=== PATIENT | male | born 1965 | race Two or more races ===

== ENCOUNTER 2024-11-26 10:58 | Emergency (ER) | payer OTHER ==
[~2024-11-26] VITALS: Ht 170.2 cm; Wt 63.6 kg
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
[2024-11-26 11:56] VITALS: PULSE 99; RESP 16; O2SAT 100
[2024-11-26 12:12] LABS: Hematocrit 38.1 % (41.0-53.0); Hemoglobin 12.2 g/dL (13.5-17.5); Mean Corpuscular Hemoglobin 24.4 pg (28.0-32.0); Mean Corpuscular Volume 76.5 fL (80.0-100.0); Nucleated Red Blood Cells % 0.1 %
[2024-11-26 12:31] LABS: Alanine Aminotransferase 36 U/L (7-40); Albumin 4.2 g/dL (3.2-4.8); Alkaline Phosphatase 94 U/L (46-116); Anion Gap 9 (5-15); BUN/Creatinine Ratio 9.8 (10.0-20.0); Bilirubin, Total 0.5 mg/dL (0.2-1.0); Calcium 9.1 mg/dL (8.7-10.4); Carbon Dioxide 25 mmol/L (20-31); Chloride 104 mmol/L (98-107); Creatine Kinase IFCC 143 U/L (46-171); Potassium 4.4 mmol/L (3.5-5.1); Sodium 138 mmol/L (136-145); Total Protein 7.2 g/dL (5.7-8.2)
[2024-11-26 12:33] LABS: Blood Urea Nitrogen 9 mg/dL (9-23); Glucose 109 mg/dL (74-106)
--- NOTE | 2024-11-26 12:48 | DVH ---
COMPUTERIZED TOMOGRAPHY OF THE HEAD WITHOUT CONTRAST REASON FOR STUDY: fall trauma COMPARISON: CT CERVICAL WITHOUT CONTRAST on DOS: 11/26/24, CT MAXILLOFACIAL WITHOUT on DOS: 11/26/24 TECHNIQUE: Helical tomographic scans were obtained through the brain. 2-D coronal and sagittal refor matted images are provided. Radiation optimization: All CT scans at this facility use at least one of these dose optimization techniques: Automated exposure control mA and/or kV adjustment per patient s ize (includes targeted exams where dose is matched to clinical indication) or iterative reconstructio n. RADIATION DOSE: CTDI: 56.92 mGy DLP: 1050.59 mGy-cm FINDINGS: No suspicious intracranial hyperdensity to suggest acute blood. There is no mass effect n or midline shift. There is no hydrocephalus. The suprasellar cistern is intact. The calvarium is inta ct. The visualized mastoid air cells and paranasal sinuses are clear. There is mild frontal scalp swe lling. 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 There is acute fracture of bilatera l nasal bones. There is acute comminuted fracture of the bony nasal septum. There is moderate soft ti ssue swelling about the nose. IMPRESSION: No acute intracranial abnormality. Acute fractures of bilateral nasal bones and the bony nasal septum. Moderate soft tissue swelling abo ut the nose.
--- NOTE | 2024-11-26 12:57 | DVH ---
EXAM: CT CERVICAL WITHOUT CONTRAST INDICATION: fall trauma TECHNIQUE: Non contrast axial images of the cervical spine have been obtained with coronal and sagitt al reformatted images. CT scans at this facility use dose modulation, iterative reconstruction, and/o r weight based dosing when appropriate to reduce radiation dose to as low as reasonably achievable. COMPARISON: CT HEAD WITHOUT CONTRAST on DOS: 11/26/24 FINDINGS: ANATOMY: Straightening of the normal cervical lordosis, which may be seen in the setting of patient p ositioning versus muscular spasm. VERTEBRAL BODIES: The vertebral bodies are normal in height and alignment. The dens is intact, the la teral masses of C1 are normally aligned, and the atlantodental interval is normal for age. SPINAL CANAL: No significant spinal canal stenosis. INTERVERTEBRAL DISCS: No CT findings to suggest traumatic disc herniation or acute hematoma. multile stephanie intervertebral disc height loss with trace posterior disc osteophyte complexes3 SOFT TISSUES: There is no prevertebral soft tissue swelling. OTHER: The partially visualized lung apices are clear. IMPRESSION: 1. No acute cervical spine fracture or malalignment.
--- NOTE | 2024-11-26 13:01 | DVH ---
EXAM: CT CHST AB PEL WO CON-NO IV/ORAL INDICATION: fall trauma TECHNIQUE: Volumetric multidetector CT images of the chest, abdomen and pelvis were obtained after th e administration of IV contrast. All CT scans at this facility use dose modulation, iterative reconst ruction, and/or weight based dosing when appropriate to reduce radiation dose to as low as reasonably achievable. COMPARISON: None FINDINGS: LOWER NECK: Unremarkable LYMPH NODES/MEDIASTINUM: No abnormal lymph nodes by CT size criteria. CARDIOVASCULAR: Normal cardiac size. No pericardial effusion. No aneurysmal dilatation of the great v essels. No significant coronary artery calcifications. LUNG PARENCHYMA/PLEURAL SPACE: No pleural effusion or pneumothorax. No consolidation, suspicious foca l airspace opacity, or suspicious nodules. Trace paraseptal emphysema. CHEST WALL: Unremarkable. LIVER: Normal hepatic size without suspicious focal lesion. GALLBLADDER/BILIARY TREE: No cholelithiasis. SPLEEN: Unremarkable. PANCREAS: Unremarkable. ADRENAL GLANDS: Unremarkable KIDNEYS: No hydronephrosis. left extrarenal pelvis versus pelviectasis BLADDER: Unremarkable for the degree distention. PELVIC ORGANS: Unremarkable. BOWEL/MESENTERY: No CT evidence of bowel obstruction. Mild stool burden. Minimal sigmoid diverticulo sis ASCITES: Absent LYMPHADENOPATHY: No pathologically enlarged lymph nodes by CT size criteria VASCULATURE: No aneurysmal dilatation. ABDOMINAL WALL: Unremarkable. MUSCULOSKELETAL: No acute fracture or aggressive focal osseous lesion. Multifocal degenerative change of the visualized spine. trace anterolisthesis L4 over L5. IMPRESSION: 1. No CT evidence of an acute chest, abdominal/pelvic process.
--- NOTE | 2024-11-26 13:04 | DVH ---
CT MAXILLOFACIAL WITHOUT INDICATION: fall trauma TECHNIQUE: Noncontrast axial images of the facial bones are then obtained along with coronal and sagi ttal reformatted images. All CT scans at this facility use dose modulation, iterative reconstruction, and/or weight based dosing when appropriate to reduce radiation dose to as low as reasonably achieva ble. COMPARISON: CT HEAD WITHOUT CONTRAST on DOS: 11/26/24 FINDINGS: FACIAL BONES: Inconspicuous nondisplaced left nasal bone fracture with minimal cortical step-off (3-4 5). Nondisplaced fracture of the superior most portion of the perpendicular plate of the ethmoid (cor onal image 25). Slight leftward bony nasal septal deviation. The zygomatic bones are intact. The maxi lla is intact. The mandible is intact. PARANASAL SINUSES: The bony margins of the paranasal sinuses are intact. There is no air fluid level within the sinuses. Mild mucosal thickening of the paranasal sinuses. ORBITS: The right and left globes are intact. The bony margins of the orbits are intact. The extracon al space is intact without inflammatory stranding of the extraconal fat. The extraocular muscles are symmetric. The intraconal space including the optic canal and nerve are symmetric. OTHER: Soft tissue swelling of the right forehead. IMPRESSION: 1. Nondisplaced left nasal bone fracture. 2. Nondisplaced fracture of the superior most portion of the perpendicular plate of the ethmoid.
[2024-11-26 13:06] VITALS: BP 149/89; PULSE 101; RESP 20; TEMP 97.9; O2SAT 100
== END 2024-11-26 13:30 | disposition short-term general hospital (02) ==
LOC: ER 10:58 → EDBD 10:58 → ER 13:30
DX: S02.2XXA Fracture of nasal bones, initial encounter for closed fracture (principal); R53.1 Weakness; V29.91XA Electric (assisted) bicycle rider (driver) (passenger) injured in unspecified traffic accident, initial encounter; Y93.55 Activity, bike riding; Y92.488 Other paved roadways as the place of occurrence of the external cause; Y99.8 Other external cause status
CPT/HCPCS: 36415; 70450; 70486; 71250; 72125; 74176; 80053; 82550; 83605; 84484; 85025; 99291